=== PATIENT | female | born 1955 | race Caucasian/White ===

== ENCOUNTER 2023-02-23 14:24 | Emergency (ER) | payer MEDICARE ==
[2023-02-23 16:54] LABS: APPEARANCE,URINE CLEAR (CLEAR); BILIRUBIN,URINE NEGATIVE (NEGATIVE); COLOR,URINE YELLOW (YELLOW); GLUCOSE,URINE NEGATIVE (NEGATIVE); KETONES,URINE NEGATIVE (NEGATIVE); LEUKOCYTE ESTERASE,URINE TRACE (NEGATIVE); NITRITE,URINE NEGATIVE (NEGATIVE); OCCULT BLOOD,URINE NEGATIVE (NEGATIVE); PROTEIN,URINE NEGATIVE (NEGATIVE); UROBILINOGEN,URINE 0.2 EU/dL (0.2-1.0)
[2023-02-23 17:01] LABS: AMORPHOUS SEDIMENT,URINE NOT SEEN; BACTERIA,URINE FEW; EPITHELIAL CELLS,URINE RARE; MUCUS,URINE FEW; RBC,URINE 0-5 (0-5); WBC,URINE 0-5 (0-5)
[2023-02-23 18:01] LABS: ANION GAP 14.9 mmol/L (5.0-14.0); CALCIUM 9.5 mg/dL (8.5-10.1); CREATININE 0.9 mg/dL (0.6-1.0); EST CRCL DRUG DOSING (CG) 47.32 mL/min; POTASSIUM,K 4.9 mmol/L (3.6-5.2)
[2023-02-23] MEDS ORDERED: hydrOXYzine HCl 25 MG Tab PO ONE (19:15)
== END 2023-02-23 19:32 | disposition critical access hospital (66) ==
LOC: JP.ED 14:24
DX: G47.00 Insomnia, unspecified (principal); N39.0 Urinary tract infection, site not specified; E78.00 Pure hypercholesterolemia, unspecified; Z79.899 Other long term (current) drug therapy
CPT/HCPCS: 36415; 70450; 80048; 81001; 99285; A9270

== ENCOUNTER 2023-02-24 08:59 | Emergency (ER) | payer MEDICARE ==
[2023-02-24 13:12] LABS: PROTEIN,CSF 52.6 mg/dL (15-45)
[2023-02-24 13:20] LABS: TUBE NUMBER,CSF 3; TUBE VOLUME,CSF 1.5 mls
[2023-02-24 13:21] LABS: APPEARANCE CSF CLEAR (CLEAR); COLOR,CSF COLORLESS (COLORLESS); MONONUCLEAR, CSF 100 % (54-100); POLYMORPHONUCLEAR, CSF 0 % (0-7); RBC,CSF 2 /ul (0-0); WBC,CSF 0 /ul (0-5)
[2023-02-24 14:09] LABS: AMPHETAMINES SCREEN, URINE NEGATIVE (NEGATIVE); BARBITURATE SCREEN,URINE NEGATIVE (NEGATIVE); BENZODIAZEPINES SCREEN,URINE NEGATIVE (NEGATIVE); METHADONE SCREEN, URINE NEGATIVE (NEGATIVE); METHAMPHETAMINES SCREEN, URINE NEGATIVE (NEGATIVE); OXYCODONE SCREEN,URINE NEGATIVE (NEGATIVE)
[2023-02-24 14:10] LABS: PROPOXYPHENE SCREEN,URINE NEGATIVE (NEGATIVE); THC SCREEN,URINE 50 NG/ML NEGATIVE (NEGATIVE)
== END 2023-02-24 14:54 | disposition home or self-care (01) ==
LOC: JP.ED 08:59
DX: F03.B0 Unspecified dementia, moderate, without behavioral disturbance, psychotic disturbance, mood disturbance, and anxiety (principal); E78.00 Pure hypercholesterolemia, unspecified; Z79.899 Other long term (current) drug therapy
CPT/HCPCS: 36415; 62270; 71046; 71046-26; 80305-QW; 80307; 82945; 83605; 84145; 84157; 85651; 86140; 87070; 87205; 89050; 99285-25